=== PATIENT | female | born 1980 | race Caucasian/White ===

== ENCOUNTER 2018-07-12 15:13 | Emergency (ER) | payer MEDICAID, OTHER ==
[2018-07-12 15:30] VITALS: BP 148/103
--- NOTE | 2018-07-12 16:08 | ER Document Report ---
HPI - HPI Time Seen by Provider: 07/12/18 15:53 Pain Level: 4 Notes: Patient is a 37-year-old female who presents to the emergency department with complaints of cough, earache, headache, sore throat and sinus congestion. She states this is been going on for 3 days. She reports she is coughing up thin white mucus. Reports occasional fever at night. Denies nausea, vomiting or diarrhea. - REPRODUCTIVE Reproductive: DENIES: : Past Medical History - General Information source: Patient - Social History Smoking Status: Never Smoker Frequency of alcohol use: None Drug Abuse: None Family History: None Pulmonary Medical History: Reports: Hx Bronchitis, Hx Pneumonia Renal/ Medical History: Denies: Hx Peritoneal Dialysis Past Surgical History: Reports: Hx Hysterectomy, Hx Orthopedic Surgery - bilat knee; left wrist, Hx Tubal Ligation - Immunizations Hx Diphtheria, Pertussis, Tetanus Vaccination: Yes Vertical Provider Document - CONSTITUTIONAL Notes: PHYSICAL EXAMINATION: GENERAL: Well-appearing, well-nourished and in no acute distress. HEAD: Atraumatic, normocephalic. EYES: Pupils equal round extraocular movements intact, conjunctiva are normal. ENT: Nares erythematous with clear rhinorrhea. Oropharynx mildly erythematous, no tonsillar swelling or exudates noted, no evidence of peritonsillar abscess. NECK: Normal range of motion, mild cervical lymphadenopathy. LUNGS: No respiratory distress, lung sounds clear to auscultation bilaterally. Musculoskeletal: Normal range of motion NEUROLOGICAL: Normal speech, normal gait. PSYCH: Normal mood, normal affect. SKIN: Warm, Dry, normal turgor, no rashes or lesions noted. - INFECTION CONTROL TRAVEL OUTSIDE OF THE [place] IN LAST 30 DAYS: No Course - Re-evaluation Re-evalutation: History as well as physical examination are consistent with viral upper respiratory illness. Patient will be discharged home in stable condition. - Vital Signs Vital signs: Temp Pulse Resp BP Pulse Ox 98.4 F 78 18 148/103 H 100 07/12/18 15:28 07/12/18 15:28 07/12/18 15:28 07/12/18 15:28 07/12/18 15:28 Discharge - Discharge Clinical Impression: Upper respiratory infection, viral Condition: Stable Disposition: HOME, SELF-CARE Additional Instructions: Your symptoms are most likely due to a viral infection it should resolve over the next 7-14 days. For congestion: Please purchase [id number] Mucinex D, the generic brand is fine. You may also use tylenol or ibuprofen as needed for aches and thorat discomfort. Please be sure to drink plenty of fluids and get rest. Return to the emergency department he began having difficulty breathing, chest pain, persistent vomiting, or any other symptoms that are concerning to you. Prescriptions: Phenylephrine HCl/Cod/Prometh [Phenergan Vc-Codeine Syrup] 10 ml PO QHS #60 ml Prednisone [Deltasone 20 mg Tablet] 3 tab PO DAILY 5 Days #15 tablet Forms: Return to Work Referrals: ROSA CABRERA MD [Primary Care Provider] - Follow up as needed
== END 2018-07-12 16:13 | disposition home or self-care (01) ==
LOC: ER 15:13
DX: J06.9 Acute upper respiratory infection, unspecified (principal); B97.89 Other viral agents as the cause of diseases classified elsewhere; R05 Cough; H92.09 Otalgia, unspecified ear; R51 Headache; R09.81 Nasal congestion; J34.89 Other specified disorders of nose and nasal sinuses; Z87.01 Personal history of pneumonia (recurrent)
CPT/HCPCS: 99283